=== PATIENT | female | born 1955 | race Caucasian/White ===

== ENCOUNTER 2021-07-20 09:01 | Outpatient (CLI) | payer BC ==
[~2021-07-20 09:01] MED LIST: ASPI-496 PO; CLIN300C9 PO; OMEP20TA62 PO; OXYC5TAB98 PO; POLY17PO5 PO
== END 2021-07-20 23:59 | disposition home or self-care (01) ==
LOC: RAD 09:01
PROVIDERS: ATTEND Registered Nurse
DX: M19.042 Primary osteoarthritis, left hand (principal)